=== PATIENT | female | born 1965 | race Caucasian/White ===

== ENCOUNTER 2017-11-13 06:37 | Day surgery (SDC) | payer BC ==
[2017-11-13] MEDS ORDERED: Propofol 200 MG/20 ML SDV IV ONE (06:38)
[2017-11-13] MEDS: Lactated Ringers 1,000 ML IV SCH (07:16)
--- NOTE | 2017-11-13 08:33 | PCM.OPNOTE ---
- General Post-Op/Procedure Note Date of Surgery/Procedure: 11/13/17 Operative Procedure(s): c scope with hot loop snare bx Findings: poor prep descending colon polyp internal hemorrhoid Pre Op Diagnosis: screening c scope Post-Op Diagnosis: descending colon polyp. internal hemorrhoid Anesthesia Technique: MAC Primary Surgeon: Chapito Kraft Anesthesia Provider: Jessica Lee Pathology: colon polyp Complications: None Condition: Good Free Text/Narrative:: see dictation
--- NOTE | 2017-11-13 13:19 | OR ---
DATE OF OPERATION: 11/13/2017 SURGEON: Chapito Kraft MD PROCEDURE PERFORMED: Colonoscopy with hot loop snare biopsy. PREOPERATIVE DIAGNOSIS: Left lower quadrant pain. POSTOPERATIVE DIAGNOSIS: Descending colon polyp and internal hemorrhoids. INDICATIONS FOR PROCEDURE: This is a 52-year-old white female referred with a history of left lower quadrant abdominal pain, never had a screening colonoscopy. In addition, she has symptomatic cholelithiasis as well as nephrolithiasis. Colonoscopy was felt to be indicated prior to further surgical intervention for her other issues. DESCRIPTION OF PROCEDURE: After an excellent IV sedation was administered, digital rectal exam was performed. No marked abnormality was noted. The flexible colonoscope was inserted and advanced to the cecum. The prep was marginal while we were able to observe and inspect the majority of the colon. There were spots of particulate vegetable matter that precluded a complete and adequate exam of the colon. The following findings were noted. Ascending colon, cecum had this matter. We were unable to irrigate. We were able to examine the remainder of the ascending colon which was essentially unremarkable. Transverse colon was unremarkable. Descending colon, again patches of this particular matter which were the most part, able to irrigate. She did have a sessile polyp in the descending colon, which was biopsied with the hot loop snare and submitted in a single container. Sigmoid, particulate matter, for the most part irrigated. Rectum unremarkable. Retroflexing of the scope did show evidence of internal hemorrhoids. Colon was deflated and the scope was removed. The patient tolerated the procedure well. We will proceed with her laparoscopic cholecystectomy. /[id number] /MODL
== END 2017-11-13 09:13 | disposition home or self-care (01) ==
LOC: FB.SDS 06:37
PROVIDERS: ATTEND Surgery
DX: D12.4 Benign neoplasm of descending colon (principal); K64.8 Other hemorrhoids; E55.9 Vitamin D deficiency, unspecified; E78.5 Hyperlipidemia, unspecified; Z98.890 Other specified postprocedural states; Z79.82 Long term (current) use of aspirin; Z79.899 Other long term (current) drug therapy; F17.210 Nicotine dependence, cigarettes, uncomplicated
CPT/HCPCS: 88305; J2704; J7120

== ENCOUNTER 2017-11-15 06:57 | Day surgery (SDC) | payer BC ==
[~2017-11-15 06:57] MED LIST: Lactated Ringers 1,000 ML IV SCH
[2017-11-15] MEDS ORDERED: Succinylcholine 200 MG/10 ML MDV IV ONE (06:58)
[2017-11-15] MEDS ORDERED: Dexamethasone 4 MG/ML 5 ML MDV IVPUSH ONE (06:58)
[2017-11-15] MEDS ORDERED: Ondansetron 4 MG/2 ML SDV IVPUSH ONE ×2 (06:58→10:40)
[2017-11-15] MEDS ORDERED: Sugammadex Sodium 200 MG/2 ML VIAL IV ONE (06:58)
[2017-11-15] MEDS ORDERED: Midazolam 1 MG/ML 2 ML SDV IV ONE (06:58)
[2017-11-15] MEDS ORDERED: Propofol 200 MG/20 ML SDV IV ONE (06:58)
[2017-11-15] MEDS ORDERED: Ketorolac 30 MG/ML SDV IVPUSH ONE (06:58)
[2017-11-15] MEDS ORDERED: Lactated Ringers 1,000 ML IV ONE (06:58)
[2017-11-15] MEDS ORDERED: hydrOXYzine HCl 50 MG/ML SDV IM ONE (06:58)
[2017-11-15] MEDS ORDERED: HYDROmorphone 2 MG/ML SDV IV ONE (06:58)
[2017-11-15] MEDS ORDERED: Rocuronium 100 MG/10 ML MDV IV ONE (06:58)
[2017-11-15] MEDS ORDERED: Acetaminophen 1,000 MG/100 ML Infusion Bottle IV ONE (06:58)
[2017-11-15] MEDS ORDERED: fentaNYL 100 MCG/2 ML SDV IVPUSH ONE (06:58)
[2017-11-15] MEDS ORDERED: ePHEDrine 50 MG/ML SDV IV ONE (06:58)
[2017-11-15] MEDS ORDERED: cefOXitin 1 GM in Premix Bag 1 BAG IV ONE (08:00)
[2017-11-15] MEDS ORDERED: Bupivacaine 0.5% 30 ML SDV ONE (09:33)
[2017-11-15] MEDS ORDERED: Lidocaine 1% with EPINEPHrine 1:100,000 20 ML MDV ONE (09:34)
[2017-11-15] MEDS ORDERED: Acetaminophen/HYDROcodone 325-5 MG Tab PO PRN (09:52)
--- NOTE | 2017-11-15 09:52 | PCM.OPNOTE ---
- General Post-Op/Procedure Note Date of Surgery/Procedure: 11/15/17 Operative Procedure(s): lap cholecystectomy Findings: critical view obtained. adhesions. gallbladder and stones Pre Op Diagnosis: gallstones Post-Op Diagnosis: Same Anesthesia Technique: General ET Tube, Local (10 ml 1 5 lido with epi/0.5% buvipicaine) Primary Surgeon: Chapito Kraft Anesthesia Provider: Romana Trevizo Pathology: gallbladder and contents EBL in mLs: 5 Complications: None Condition: Good Free Text/Narrative:: see dictation
[2017-11-15] MEDS ORDERED: Albuterol 0.083% 2.5 MG/3 ML Neb Soln NEB ONE (09:56)
[2017-11-15] MEDS ORDERED: Albuterol 0.083% 2.5 MG/3 ML Neb Soln ONE (10:01)
--- NOTE | 2017-11-15 13:54 | OR ---
DATE OF OPERATION: 11/15/2017 SURGEON: Chapito Kraft MD PROCEDURE PERFORMED: Laparoscopic cholecystectomy. PREOPERATIVE DIAGNOSIS: Symptomatic cholelithiasis without cholecystitis.. POSTOPERATIVE DIAGNOSIS: Symptomatic cholelithiasis without cholecystitis.. INDICATIONS FOR PROCEDURE: This is a 52-year-old white female who has had some issues with right upper quadrant abdominal pain. She does have gallstones documented on ultrasound. She was offered and accepted laparoscopic cholecystectomy. INTRAOPERATIVE FINDINGS: 1. Multiple thin filmy adhesions were noted. 2. Critical view was obtained. 3. 10 mL of our local mixture was used. This was a 1:1 mixture of 1% lidocaine with epinephrine, 0.5% bupivacaine. DESCRIPTION OF OPERATION: After an excellent general endotracheal anesthetic was administered, the patient was prepped and draped in usual sterile manner. Local was injected at the base of the patient's umbilicus. An incision was then made and careful blunt dissection was carried out dissecting free the subcu fat exposing the fascia. Two stay sutures were placed on the midline fascia, which was then elevated. The midline was incised and the abdominal cavity was entered. A 10.5-mm Eli trocar was then inserted into the patient's abdomen and after digital palpation to ensure no adhesions and the patient's abdomen was then insufflated to 15 mmHg using carbon dioxide. Under direct visualization, three 5 mm ports were placed, one in the midline epigastrium and two below the right costal margin at the proximal level of the midclavicular and anterior axillary lines. The dome of the gallbladder was grasped. Thin filmy adhesions were then taken down using a combination of sharp dissection as well as electrocautery dissection and blunt dissection. This allowed us to expose the infundibulum and track even further. Careful dissection was carried out dissecting free the cystic duct and the cystic artery and after obtaining a critical view, two clips were placed on the proximal aspect of both of these structures and one distally and then these were then transected. L-Hook cautery dissection was then used to carry out to dissect the gallbladder free from the gallbladder fossa. Bleeding was controlled with electrocautery as we did our dissection. The specimen was then passed to a specimen bag and delivered out through the umbilicus. The area was irrigated and after assuring that we had hemostasis, the trocars were removed and pneumoperitoneum was released. The periumbilical fascial defect was closed with 0 Vicryl. The skin was closed with subcu 4-0 Vicryl. Steri-Strips were applied. Needle, sponge, and instrument counts were reported as correct. The patient was taken to recovery room in good condition having tolerated the procedure well. /[id number] /MODL
== END 2017-11-15 11:48 | disposition home or self-care (01) ==
LOC: FB.SDS 06:57
PROVIDERS: ATTEND Surgery
DX: K80.10 Calculus of gallbladder with chronic cholecystitis without obstruction (principal); E78.5 Hyperlipidemia, unspecified; E55.9 Vitamin D deficiency, unspecified; F41.9 Anxiety disorder, unspecified; F17.210 Nicotine dependence, cigarettes, uncomplicated; Z79.82 Long term (current) use of aspirin; Z79.899 Other long term (current) drug therapy
CPT/HCPCS: 88304; A9270-GY; C9399; J0131; J0330; J0694; J1100; J1170; J1885; J2250; J2405; J2704; J3010; J3410; J7120